=== PATIENT | female | born 1965 | race Caucasian/White ===

== ENCOUNTER 2020-07-26 08:27 | Inpatient (IN) | payer MEDICAID ==
[~2020-07-26] VITALS: Ht 160 cm; Wt 73.2 kg
[2020-07-26] MEDS ORDERED: DiphenhydrAMINE HCL 50 MG/ML VIAL ONE (08:37)
[2020-07-26] MEDS ORDERED: HALOPERIDOL LACTATE 5 MG/ML VIAL ONE (08:37)
[2020-07-26] MEDS ORDERED: LORazepam 2 MG/ML VIAL ONE (08:37)
[2020-07-26] MEDS ORDERED: DiphenhydrAMINE HCL 50 MG/ML VIAL IM ONE (08:45)
[2020-07-26] MEDS ORDERED: HALOPERIDOL LACTATE 5 MG/ML VIAL IM ONE (08:45)
[2020-07-26] MEDS ORDERED: LORazepam 2 MG/ML VIAL IM ONE (08:45)
[2020-07-26 09:05] LABS: BASOPHILS % (AUTO) 1.1 % (0.0-2.0); EOSINOPHILS % (AUTO) 2.6 % (1.0-6.0); HEMATOCRIT 43.8 % (36-46); HEMOGLOBIN 14.9 g/dL (12.0-16.0); LYMPHOCYTES # (AUTO) 2.3 K/uL (1.0-4.8); MEAN CORPUSCULAR HGB CONC 33.9 G/dL (31.0-37.0); MEAN CORPUSCULAR VOLUME 94 fL (80-100); MONOCYTES # (AUTO) 0.4 K/uL (0.1-1.0); MONOCYTES % (AUTO) 7.3 % (2.0-9.0); NEUTROPHILS # (AUTO) 2.7 K/uL (1.8-7.7); PLATELET COUNT (AUTO) 218 K/uL (150-450); RED BLOOD CELL COUNT(AUTO) 4.65 MIL/uL (4.00-5.20); RED CELL DISTRIBUTION WIDTH 14.3 % (11.5-14.5)
[2020-07-26 09:14] LABS: CREATININE 0.89 mg/dL (0.60-1.30); POTASSIUM 3.5 mmol/L (3.5-5.1)
[2020-07-26 09:20] LABS: ALBUMIN 4.1 g/dL (3.4-5.0); BILIRUBIN,TOTAL 0.2 mg/dL (0.1-1.0); TOTAL PROTEIN, SERUM 7.4 g/dL (6.4-8.2)
[2020-07-26] MEDS ORDERED: ZOLPIDEM TARTRATE 10 MG TABLET PO PRN (15:15)
[2020-07-26 15:46] LABS: COVID AG,FIA SOURCE NASOPHARYNGEAL
[2020-07-26 17:30] VITALS: BP 138/86
[2020-07-26 18:08] LABS: AMPHET/METH SCREEN,URINE NEGATIVE (NEGATIVE); BARBITURATE SCREEN, URINE NEGATIVE (NEGATIVE); BENZODIAZEPINES SCREEN,URINE NEGATIVE (NEGATIVE); CANNABINOID SCREEN,URINE NEGATIVE (NEGATIVE); COCAINE SCREEN,URINE NEGATIVE (NEGATIVE); METHADONE SCREEN, URINE NEGATIVE (NEGATIVE); OPIATE SCREEN,URINE NEGATIVE (NEGATIVE)
[2020-07-26 18:12] LABS: PHENCYCLIDINE SCREEN,URINE NEGATIVE (NEGATIVE)
[2020-07-26 18:30] VITALS: BP 140/88
[2020-07-26 18:34] VITALS: BP 138/86
[2020-07-26] MEDS ORDERED: NICOTINE 14 MG/24 HOUR PATCH TD PRN (19:00)
[2020-07-26] MEDS ORDERED: PNEUMOCOCCAL VACCINE POLYVALENT 0.5 ML VIAL [PPSV23] IM ONE (19:15)
[2020-07-26] MEDS ORDERED: INFLUENZA VIRUS VACCINE QVS 2020-21 (6MO+)/PF 60 MCG/0.5 ML SYRINGE IM ONE (19:15)
[2020-07-26 19:30] VITALS: BP_SYST 138; BP_SYST 142; BP_DIAS 82
[2020-07-26 20:30] VITALS: BP 148/72
[2020-07-27 07:34] LABS: CHOL/HDL RATIO 1.8 (3.9-5.7)
[2020-07-27 08:00] VITALS: BP 156/99
[2020-07-27] MEDS ORDERED: LOPERAMIDE HCL 2 MG CAPSULE PO PRN (08:45)
[2020-07-27] MEDS ORDERED: IBUPROFEN 400 MG TABLET PO PRN (08:45)
[2020-07-27] MEDS ORDERED: NICOTINE 14 MG/24 HOUR PATCH TD PRN (08:45)
[2020-07-27] MEDS ORDERED: CloNIDine HCL 0.1 MG TABLET PO PRN (08:45)
[2020-07-27] MEDS ORDERED: DOCUSATE SODIUM 100 MG CAPSULE PO PRN (08:45)
[2020-07-27] MEDS ORDERED: PETROLATUM,WHITE 28 GM JELLY TP PRN (08:45)
[2020-07-27] MEDS ORDERED: MAGNESIUM HYDROXIDE SUSPENSION 30 ML UDCUP PO PRN (08:45)
[2020-07-27] MEDS ORDERED: ONDANSETRON HCL 4 MG TABLET PO PRN (08:45)
[2020-07-27] MEDS ORDERED: ALBUTEROL SULFATE HFA 90 MCG/PUFF 8 GM INHALER IH PRN (08:45)
[2020-07-27] MEDS ORDERED: MAG HYDROX/AL HYDROX/SIMETH ES 30 ML SUSPENSION UDCUP PO PRN (08:45)
[2020-07-27] MEDS ORDERED: ACETAMINOPHEN 325 MG TABLET PO PRN (08:45)
[2020-07-27] MEDS ORDERED: GuaiFENesin/D-METHORPHAN [SUGAR-FREE] 200-20MG/10 ML SYRUP UDCUP PO PRN (08:45)
[2020-07-27 09:00] VITALS: BP 150/69
[2020-07-27] MEDS: HALOPERIDOL 5 MG TABLET PO PRN (11:38)
[2020-07-27] MEDS: LORazepam 2 MG TABLET PO PRN ×2 (11:38→23:57)
[2020-07-27 12:30] VITALS: BP 137/79
[2020-07-27] MEDS: SERTRALINE HCL 50 MG TABLET PO SCH (13:28)
[2020-07-27 16:59] VITALS: BP 152/92
[2020-07-27 17:13] VITALS: BP 152/92
[2020-07-28 08:00] VITALS: BP 149/88
[2020-07-28] MEDS: LORazepam 2 MG TABLET PO PRN ×2 (09:10→16:07)
[2020-07-28] MEDS: SERTRALINE HCL 50 MG TABLET PO SCH (09:10)
[2020-07-28] MEDS: HALOPERIDOL 5 MG TABLET PO PRN ×2 (09:10→16:07)
[2020-07-28 09:35] VITALS: BP 149/88
[2020-07-28 12:41] VITALS: BP 138/75
[2020-07-28 16:53] VITALS: BP 154/95
[2020-07-28 16:54] VITALS: BP 122/91
[2020-07-29] MEDS: LORazepam 2 MG TABLET PO PRN ×2 (03:56→09:14)
[2020-07-29] MEDS: HALOPERIDOL 5 MG TABLET PO PRN ×2 (03:56→09:14)
[2020-07-29 08:13] VITALS: BP 132/90
[2020-07-29 08:14] VITALS: BP 132/90
[2020-07-29] MEDS: SERTRALINE HCL 50 MG TABLET PO SCH (09:14)
[2020-07-29 12:27] VITALS: BP 121/80
[2020-07-29] MEDS ORDERED: SERT50TA12 PO (14:24)
== END 2020-07-29 17:00 | disposition home or self-care (01) | DRG 751 ==
LOC: EDBD 08:31 → EMS 08:31 → 3EC 15:10 → UNDOADMIN 17:34 → 3EC 17:34
PROC: 3E0234Z Introduction of Serum, Toxoid and Vaccine into Muscle, Percutaneous Approach (ICD-10-PCS; principal; 2020-07-26)
PROC: 3E02340 Introduction of Influenza Vaccine into Muscle, Percutaneous Approach (ICD-10-PCS; 2020-07-26)
DX: F32.2 Major depressive disorder, single episode, severe without psychotic features (principal); R45.851 Suicidal ideations; I10 Essential (primary) hypertension; F32.9 Major depressive disorder, single episode, unspecified; E78.5 Hyperlipidemia, unspecified; F17.200 Nicotine dependence, unspecified, uncomplicated; F20.9 Schizophrenia, unspecified; F10.20 Alcohol dependence, uncomplicated; Z20.828 Contact with and (suspected) exposure to other viral communicable diseases; Z79.899 Other long term (current) drug therapy; Z23 Encounter for immunization; Z71.6 Tobacco abuse counseling
CPT/HCPCS: 87426; 90686; 90732; 99291; G0480; J1200; J1630; J2060